=== PATIENT | female | born 1975 | race Caucasian/White ===

== ENCOUNTER → 2018-03-29 07:31 | Outpatient (CLI) | payer OTHER, SELFPAY ==
[2018-03-29 09:04] LABS: Add Manual Diff / Slide Review NO; Basophils Percent Auto 0.5 % (0-2); Eosinophils Percent Auto 2.7 % (2-4); Hemoglobin 12.6 g/dL (12.0-16.0); Lymphocytes Percent Auto 14.7 % (25-40); Mean Corpuscular HGB Conc 33.2 % (30-36); Mean Corpuscular Hemoglobin 26.4 PG (26-34); Mean Corpuscular Volume 79.5 fL (80-100); Monocytes Percent Auto 8.9 % (3-14); Neutrophils Absolute Auto 4400 /uL (3000-5900); Neutrophils Percent Auto 73.2 % (50-75); Platelet Count 244 X10^3/uL (150-400); Red Blood Cell Count 4.78 X10^6/uL (4.0-5.2); Red Cell Distribution Width 14.5 % (11.6-14.8); White Blood Cell Count 6.1 X10^3/uL (4.5-11.0)
[2018-03-29 09:09] LABS: Alanine Aminotransferase 21 IU/L (9-52); Albumin Globulin Ratio 1.2 (1.0-2.8); Alkaline Phosphatase 84 U/L (38-126); Aspartate Aminotransferase 22 IU/L (14-36); BUN Creatinine Ratio 23.3 (6-22); Bilirubin Total 0.4 mg/dL (0.2-1.3); Calcium 9.1 mg/dL (8.4-10.2); Cholesterol 163 mg/dL (140-199); Estimated Glomerular Filt Rate > 60.0 mL/min (>60); Globulin 3.3 g/dL (1.7-4.1); Glucose 98 mg/dL (70-100); HDL Cholesterol 47 mg/dL (40-60); HEMOLYSIS < 15 (0-50); LDL Cholesterol Calculated 104 mg/dL (<100); Potassium 4.6 mmol/L (3.4-5.1); Sodium 139 mmol/L (137-145); Total Protein 7.3 g/dL (6.3-8.2); Triglycerides 59 mg/dL (35-150)
[2018-03-29 09:42] LABS: Thyroid Stimulating Hormone 2.11 uIU/mL (0.47-4.68)
== END ==
PROVIDERS: Family Provider Family Medicine; PCP Family Medicine; Visit Provider Family Medicine
DX: R53.81 Other malaise (principal); M79.89 Other specified soft tissue disorders
CPT/HCPCS: 36415; 80053; 80061; 84443; 85025

== ENCOUNTER → 2019-06-02 13:27 | Outpatient (CLI) | payer OTHER, SELFPAY ==
--- NOTE | 2019-06-02 | DI.US.S_ITS ---
LIMITED ULTRASOUND OF LEFT BREAST: 06/02/2019 CLINICAL: Additional evaluation requested from prior study. Comparison is made to exams dated: 06/02/2019 mammogram - [facility] and 05/01/2019 mammogram - [facility]. Color flow and real-time ultrasound of the left breast upper outer quadrant were performed. Calderon scale images of the real-time examination were reviewed. There is a 1.9 x 1.9 x 0.8 cm oval indistinct hypoechoic cyst with low-level internal echogenic foci, posterior acoustic enhancement, and no vascularity on Doppler ultrasound in the left breast at 3:00 position 5 cm from the nipple. There is a 1.7 x 1.0 x 1.4 cm oval indistinct hypoechoic cluster of microcysts with internal echogenic foci, no vascularity on Doppler ultrasound, and posterior acoustic enhancement in the left breast at 3:00 position 7 cm from the nipple. There is a 1.8 x 0.9 x 2.6 cm oval indistinct hypoechoic cluster of microcysts with single internal avascular septation, posterior acoustic enhancement, no vascularity on Doppler ultrasound in the left breast at 1:00 position. There is no left axillary lymphadenopathy on targeted ultrasound of the left axilla. IMPRESSION: PROBABLY BENIGN 1) 1.9 cm probable complicated cyst in the left breast at 3:00 position 5 cm from the nipple. A follow-up mammogram and targeted ultrasound in 6 months is recommended to demonstrate stability. 2) 1.7 cm probable cluster of microcysts in the left breast at 3:00 position 7 cm from the nipple. A follow-up mammogram and targeted ultrasound in 6 months is recommended to demonstrate stability. 3) 1.8 cm probable cluster of microcysts in the left breast at 1:00 position. A follow-up mammogram and targeted ultrasound in 6 months is recommended to demonstrate stability. 4) No ultrasound evidence of left axillary lymphadenopathy. 5) The patient is advised to monitor her breasts and to return sooner for re-evaluation should she feel anything grow or change. This exam was interpreted at Station ID: [id number]. Electronically Signed By: Cesario Mohan M.D. ecl/:06/02/2019 16:45:35 letter sent: Followup Recommended Ultrasound BI-RADS: 3 Probably benign
--- NOTE | 2019-06-02 | DI.US.S_ITS ---
LIMITED ULTRASOUND OF RIGHT BREAST: 06/02/2019 CLINICAL: Additional evaluation requested from prior study. Comparison is made to exams dated: 06/02/2019 mammogram - [facility] and 05/01/2019 mammogram - [facility]. Color flow and real-time ultrasound of the right breast upper aspect were performed. Calderon scale images of the real-time examination were reviewed. There is a 1.5 x 0.8 x 1.4 cm oval indistinct hypoechoic cyst with mild posterior acoustic enhancement and no internal vascularity on Doppler ultrasound in the right breast at 11:30 position 5 cm from the nipple. There is a 0.6 x 0.5 x 0.6 cm oval indistinct hypoechoic cyst with internal echogenic foci, mild posterior acoustic enhancement, and no vascularity on Doppler ultrasound in the right breast at 9:00 position 8-9 cm from the nipple. There is a 0.4 x 0.2 x 0.4 cm oval indistinct hypoechoic cyst with internal echogenic foci, mild posterior acoustic enhancement, and no vascularity on Doppler ultrasound in the right breast at 9:00 position 6-7 cm from the nipple There is a 0.7 x 0.7 x 1.1 cm oval indistinct hypoechoic cluster of microcysts with internal echogenic foci, and posterior acoustic enhancement, and no vascularity on Doppler ultrasound in the right breast at 9:00 position 6-7 cm from the nipple. Targeted ultrasound of the right axilla demonstrates no right axillary lymphadenopathy. IMPRESSION: PROBABLY BENIGN 1) 1.5 cm probable complicated cyst in the right breast at 11:30 position 5 cm from the nipple. 2) 0.6 cm probable complicated cyst in the right breast at 9:00 position 8-9 cm from the nipple. 3) 1.1 cm probable cluster of microcysts in the right breast at 9:00 position 6-7 cm from nipple, with adjacent 0.4 cm probable complicated cyst. 4) A followup diagnostic mammogram and targeted ultrasound in 6 months is recommended to demonstrate stability of the above described findings. Patient is advised to monitor her breast and return sooner for reevaluation she should feel anything grow or change within her breasts. This exam was interpreted at Station ID: [id number]. Electronically Signed By: Cesario Mohan M.D. ecl/:06/02/2019 16:57:00 letter sent: Followup Recommended Ultrasound BI-RADS: 3 Probably benign
--- NOTE | 2019-06-02 | DI.MG.S_ITS ---
BILATERAL DIGITAL DIAGNOSTIC MAMMOGRAM 3D/2D WITH ADDITIONAL VIEWS: 06/02/2019 CLINICAL: Abnormal mammogram follow up. Outside comparison screening mammogram from 05/01/2019 from [facility] in [place], [place] with associated report dictated by Dr. Marianna Adrian on 05/09/2019 identifies asymmetry in the central breast on the MLO view, posterior depth in the right breast and 2 asymmetries in the lateral breast on CC view with possibel correlate in the superior breast on the MLO view in the left breast. Comparison is made to exam dated: 05/01/2019 mammogram - [facility]. The tissue of both breasts is heterogeneously dense. This may lower the sensitivity of mammography. Previously noted right breast asymmetry in the central breast on the MLO view posterior depth on comparison screening mammogram of 05/01/19 resolves with additional views and likely represented superimposition of benign anatomic tissues. Previously identified 2 asymmetries in the lateral breast on CC view with possible correlate in the superior breast on the MLO view in the left breast on comparison screening mammogram of 05/01/19 persists with additional views. IMPRESSION: INCOMPLETE: NEEDS ADDITIONAL IMAGING EVALUATION 1) Previously noted right breast asymmetry in the central breast on the MLO view posterior depth on comparison screening mammogram of 05/01/19 resolves with additional views and likely represented superimposition of benign anatomic tissues. A targeted ultrasound is recommended and will be performed immediately following this exam. 2) Previously identified 2 asymmetries in the lateral breast on CC view with possible correlate in the superior breast on the MLO view in the left breast on comparison screening mammogram of 05/01/19 persists with additional views. A targeted ultrasound is recommended and will be performed immediately following this exam. This exam was interpreted at Station ID: [id number]. NOTE: For mammograms, a report in lay terms will be sent to the patient. Approximately 15% of breast malignancies will not be visualized mammographically. In the management of a palpable breast mass, a negative mammogram must not discourage biopsy of a clinically suspicious lesion. Electronically Signed By: Cesario Mohan M.D. ecl/:06/02/2019 14:30:56 ACR BI-RADS Category 0: Incomplete [id number]
== END ==
PROVIDERS: Family Provider Family Medicine; PCP Family Medicine; Visit Provider Family Medicine
DX: R92.8 Other abnormal and inconclusive findings on diagnostic imaging of breast (principal)
CPT/HCPCS: 76642; 77066; G0279

== ENCOUNTER → 2025-04-24 11:54 | Outpatient (CLI) | payer OTHER, SELFPAY ==
--- NOTE | 2025-04-24 11:56 | DI.RAD.S_ITS ---
PROCEDURE: XR HAND LT MIN 3V INDICATIONS: L HAND PAIN TECHNIQUE: 3 views of the hand(s) acquired. COMPARISON: None. FINDINGS: Bones: No fractures or dislocations. Carpal bones are normally aligned. No suspicious bony lesions. Soft tissues: No suspicious soft tissue calcifications. IMPRESSION: Second digit soft tissue swelling without fracture or foreign body Approved by: Dustin Barnhart M.D. on 04/24/2025 at 18:00
== END ==
PROVIDERS: Family Provider Family Medicine; PCP Family Medicine; Referring Provider Family Medicine; Visit Provider Family Medicine
DX: M79.645 Pain in left finger(s) (principal); M79.89 Other specified soft tissue disorders
CPT/HCPCS: 73130

== ENCOUNTER → 2025-07-23 13:09 | Outpatient (ROUT) | payer OTHER, SELFPAY ==
[2025-07-23 13:16] LABS: INR 1.1 (0.9-1.3); Prothrombin Time 12.1 SECONDS (9.4-12.5)
== END ==
PROVIDERS: Family Provider Family Medicine; PCP Family Medicine; Visit Provider Family Medicine
DX: R23.3 Spontaneous ecchymoses (principal)
CPT/HCPCS: 85610